=== PATIENT | female | born 2000 | race Caucasian/White ===

== ENCOUNTER 2019-02-27 21:09 | Emergency (ER) | payer BC ==
[2019-02-27 21:22] VITALS: BP 116/62
[2019-02-27] MEDS ORDERED: Sulfamethox/Trimethoprim DS 800/160* TAB PO ONE (21:36)
--- NOTE | 2019-02-27 21:41 | ED ---
Throat Pain/Nasal Congestion - HPI Summary HPI Summary: 19 yr old female with the complaint of pain, redness and STS over the medial right periorbital area overlying the lacrimal duct area. No tearing, No eye pain. She has had some mild eye lid swelling. No change in vision. Onset over past day. - History of Current Complaint Chief Complaint: UCEye Time Seen by Provider: 02/27/19 21:26 - Allergies/Home Medications Allergies/Adverse Reactions: Allergies Allergy/AdvReac Type Severity Reaction Status Date / Time No Known Allergies Allergy Verified 02/27/19 21:22 PMH/Surg Hx/FS Hx/Imm Hx Previously Healthy: Yes Infectious Disease History: No Infectious Disease History: Denies: Traveled Outside the [place] in Last 30 Days - Family History Known Family History: Positive: None - Social History Occupation: Student Alcohol Use: None Substance Use Type: Reports: None Smoking Status (MU): Never Smoked Tobacco Review of Systems Constitutional: Negative Positive: Other - redness skin over lacrimal duct area. . Negative: Blurred Vision, Diplopia, Drainage, Erythema All Other Systems Reviewed And Are Negative: Yes Physical Exam Triage Information Reviewed: Yes Vital Signs On Initial Exam: Initial Vitals Temp Pulse Resp BP Pulse Ox 98.4 F 85 16 116/62 100 02/27/19 21:20 02/27/19 21:20 02/27/19 21:20 02/27/19 21:20 02/27/19 21:20 Vital Signs Reviewed: Yes Appearance: Positive: Well-Appearing, No Pain Distress Skin: Positive: Warm, Skin Color Reflects Adequate Perfusion Head/Face: Positive: Normal Head/Face Inspection Eyes: Positive: EOMI, LARISSA, Conjunctiva Clear, Other: - there is mild upper eyelid swelling and mild STS over the medial periorbital area with mild tenderness over the area of lacrimal duct, but no tearing. No evidence of obstruction.. Negative: Conjunctiva Inflammed ENT: Positive: Pharynx normal. Negative: Nasal congestion, Nasal drainage Respiratory/Lung Sounds: Positive: Clear to Auscultation Cardiovascular: Positive: RRR Abdomen Description: Negative: Distended Musculoskeletal: Positive: Strength/ROM Intact Neurological: Positive: Sensory/Motor Intact, Alert, Oriented to Person Place, Time, CN Intact II-III Psychiatric: Positive: Normal Diagnostics - Vital Signs Vital Signs Temp Pulse Resp BP Pulse Ox 02/27/19 21:20 98.4 F 85 16 116/62 100 - Laboratory Lab Statement: Any lab studies that have been ordered have been reviewed, and results considered in the medical decision making process. EENT Course/Dx - Course Course Of Treatment: 19 yr old with mild facial cellulitis. No tear duct involvement. Rx bactrim ds. - Diagnoses Provider Diagnoses: Cellulitis, face Discharge ED - Sign-Out/Discharge Documenting (check all that apply): Patient Departure All imaging exams completed and their final reports reviewed: No Studies - Discharge Plan Condition: Good Disposition: HOME Prescriptions: Sulfamethox/Trimethoprim DS* [Bactrim DS 800/160 TAB*] 1 tab PO BID #20 tab Patient Education Materials: Cellulitis (ED) Referrals: Amanda Byrd MD [Primary Care Provider] - 2 Days - Billing Disposition and Condition Condition: GOOD Disposition: Home
== END 2019-02-27 21:42 | disposition home or self-care (01) ==
LOC: UCCORT 21:09
DX: L03.213 Periorbital cellulitis (principal)
CPT/HCPCS: 99202; A9270-GY; G0463

== ENCOUNTER 2023-08-09 14:23 | Inpatient (IN) ==
[2023-08-09] MEDS ORDERED: Prochlorperazine 5 mg/ml 2 ml VIAL (10 mg) IV PRN (15:44)
[2023-08-09] MEDS ORDERED: Lidocaine 1% VIAL 10 MG/ML 30 ML VIAL INJ PRN (15:44)
[2023-08-09] MEDS: Buffered Lidocaine 1% SYRIN 1 ml INTRADERM ONE (16:49)
[2023-08-09 17:02] LABS: ABS Lymphocytes 1.6 10^3/uL (1.0-4.8); ABS Monocytes 0.8 10^3/uL (0.0-0.9); ABS Neutrophils 7.8 10^3/uL (1.5-7.6); Eosinophil % 0.1 %; Hemoglobin 12.7 g/dL (11.5-14.3); Lymphocyte % 15.9 %; Mean Corpuscular Hemoglobin 29.7 pg (27-33); Mean Corpuscular Hgb Conc 34.2 g/dL (31-36); Mean Corpuscular Volume 86.9 fL (80-97); Mean Platelet Volume 11.1 fL (7.5-11.2); Platelet Count 188 10^3/uL (150-450); Red Blood Count 4.26 10^6/uL (3.63-4.92); Red Cell Distribution Width 13.9 % (12-17); White Blood Count 10.3 10^3/uL (3.8-11.8)
[2023-08-09 18:04] LABS: Urine Benzodiazepine Screen None Detected (None Detect); Urine Opiates Screen None Detected (None Detect)
[2023-08-09] MEDS: Lactated Ringers 1000 ml BAG 1,000 ML IV ONE (18:23)
[2023-08-09] MEDS: Lidocaine 1.5% EPI 1:200,000 30 ML SDV ONE (18:53)
[2023-08-09] MEDS: OBEPIDURAL (200 ML) 200 ML EPIDURAL ONE (18:57)
[2023-08-09] MEDS ORDERED: Phenylephrine 40 mcg/mL 10mL (400mcg) SYRINGE IV PUSH PRN ×2 (19:12)
[2023-08-09] MEDS ORDERED: Lactated Ringers 1000 ml BAG 1,000 ML IV ONE (19:12)
[2023-08-09] MEDS ORDERED: Sodium Citrate/Citric Acid LIQ 15 ML UDC PO PRN (19:12)
[2023-08-09] MEDS: Lactated Ringers 1000 ml BAG 1,000 ML IV SCH (19:21)
[2023-08-09 19:54] LABS: Urine Appearance Clear; Urine Bilirubin Negative (Negative); Urine Blood Negative (Negative); Urine Color Colorless; Urine Glucose Negative (Negative); Urine Ketones Negative (Negative); Urine Nitrite Negative (Negative); Urine Protein Negative (Negative); Urine Specific Gravity 1.007 (1.002-1.030); Urine Urobilinogen Negative (Negative)
[2023-08-09] MEDS ORDERED: Lactated Ringers 1000 ml BAG 1,000 ML IV SCH (20:00)
[2023-08-09] MEDS ORDERED: OBEPIDURAL (200 ML) 200 ML EPIDURAL SCH (20:00)
[2023-08-09] MEDS ORDERED: Oxytocin in LR 0 MILLI.UNIT/0 ML BAG IV ONE (23:25)
[2023-08-10] MEDS ORDERED: Glycerin ADULT 2.4 gm SUPP PR PRN (00:11)
[2023-08-10] MEDS ORDERED: Oxytocin in LR 20,000 MILLI.UNIT/1,000 ML BAG IV SCH (00:15)
[2023-08-10] MEDS ORDERED: Lactated Ringers 1000 ml BAG 1,000 ML IV SCH (01:00)
[2023-08-10] MEDS: Witch Hazel PAD JAR TOPICAL PRN (01:43)
[2023-08-10] MEDS: Dibucaine 1% OINT 28.35 GM TUBE PR PRN (01:43)
[2023-08-10 14:09] LABS: ABS Eosinophils 0.1 10^3/uL (0.0-0.5); ABS Lymphocytes 2.2 10^3/uL (1.0-4.8); ABS Monocytes 1.1 10^3/uL (0.0-0.9); ABS Neutrophils 8.4 10^3/uL (1.5-7.6); ABS Nucleated RBC 0.01 10^3/ul; Eosinophil % 0.9 %; Hemoglobin 10.7 g/dL (11.5-14.3); Lymphocyte % 18.6 %; Mean Corpuscular Hemoglobin 29.9 pg (27-33); Mean Corpuscular Hgb Conc 34.4 g/dL (31-36); Mean Corpuscular Volume 87.1 fL (80-97); Mean Platelet Volume 10.2 fL (7.5-11.2); Nucleated Red Blood Cells % 0.1 %/100WBC (0.0-0.8); Platelet Count 180 10^3/uL (150-450); Red Blood Count 3.56 10^6/uL (3.63-4.92); Red Cell Distribution Width 13.9 % (12-17); White Blood Count 11.8 10^3/uL (3.8-11.8)
[2023-08-11 08:29] VITALS: BP 115/63
== END 2023-08-11 14:00 | disposition home or self-care (01) | DRG 560 ==
LOC: MCHOBOUT 14:23 → MCHOB 16:06
PROVIDERS: ADMIT Registered Nurse; ATTEND Registered Nurse